=== PATIENT | female | born 1970 | race American Indian/Alaskan Native ===

== ENCOUNTER 2021-04-14 15:56 | Outpatient (CLI) | payer OTHER | END 2021-04-14 15:57 | disposition home or self-care (01) | LOC: PF 15:56 | PROVIDERS: ATTEND Internal Medicine | DX: M33.90 Dermatopolymyositis, unspecified, organ involvement unspecified (principal); E11.9 Type 2 diabetes mellitus without complications; M19.90 Unspecified osteoarthritis, unspecified site; M32.9 Systemic lupus erythematosus, unspecified | CPT/HCPCS: 94010 ==